=== PATIENT | female | born 1995 ===

== ENCOUNTER → 2018-08-23 19:25 | Outpatient (REF) | payer OTHER, SELFPAY ==
[2018-08-23 19:51] LABS: Add Manual Diff / Slide Review NO; Basophils Percent Auto 0.4 % (0-2); Eosinophils Percent Auto 1.5 % (2-4); Hematocrit 42.1 % (36-46); Hemoglobin 14.2 g/dL (12.0-16.0); Lymphocytes Percent Auto 35.9 % (25-40); Mean Corpuscular HGB Conc 33.8 % (30-36); Mean Corpuscular Hemoglobin 30.7 PG (26-34); Mean Corpuscular Volume 90.8 fL (80-100); Neutrophils Absolute Auto 3700 /uL (3000-5900); Neutrophils Percent Auto 57.2 % (50-75); Platelet Count 201 X10^3/uL (150-400); Red Blood Cell Count 4.63 X10^6/uL (4.0-5.2); Red Cell Distribution Width 14.2 % (11.6-14.8); White Blood Cell Count 6.4 X10^3/uL (4.5-11.0)
[2018-08-23 20:01] LABS: Alanine Aminotransferase 22 IU/L (9-52); Albumin 4.5 g/dL (3.5-5.0); Albumin Globulin Ratio 1.6 (1.0-2.8); Alkaline Phosphatase 73 U/L (38-126); Aspartate Aminotransferase 26 IU/L (14-36); BUN Creatinine Ratio 18.6 (6-22); Bilirubin Total 0.4 mg/dL (0.2-1.3); Blood Urea Nitrogen 13 mg/dL (7-17); Calcium 9.5 mg/dL (8.4-10.2); Carbon Dioxide 26 mmol/L (22-32); Chloride 103 mmol/L (98-107); Cholesterol 195 mg/dL (140-199); Estimated Glomerular Filt Rate > 60.0 mL/min (>60); Globulin 2.8 g/dL (1.7-4.1); Glucose 102 mg/dL (70-100); HDL Cholesterol 52 mg/dL (40-60); HEMOLYSIS < 15 (0-50); LDL Cholesterol Calculated 83 mg/dL (<100); Sodium 140 mmol/L (137-145); Total Protein 7.3 g/dL (6.3-8.2); Triglycerides 302 mg/dL (35-150)
[2018-08-23 20:03] LABS: HEMOLYSIS < 15 (0-50); Iron 163 ug/dL (37-170)
[2018-08-23 20:07] LABS: Hemoglobin A1C% w Est Avg Glu 4.9 % (4.0-6.0)
[2018-08-23 20:13] LABS: Percent Iron Saturation 45 % (15-50); Total Iron Binding Capacity 359 ug/dL (265-497); Transferrin 325 mg/dL (206-381)
[2018-08-23 20:19] LABS: Free T3, Triiodothyronine Free 3.68 pg/mL (2.77-5.27)
[2018-08-23 20:33] LABS: Thyroid Stimulating Hormone 1.82 uIU/mL (0.47-4.68)
[2018-08-23 20:37] LABS: Ferritin 11.2 ng/mL (6.27-137)
[2018-08-23 21:07] LABS: Vitamin B12 454 pg/mL (239-931)
== END ==
LOC: LAB 19:25
PROVIDERS: Visit Provider Nurse Practitioner Acute Care
DX: N39.0 Urinary tract infection, site not specified (principal); E66.3 Overweight; R63.5 Abnormal weight gain; R63.2 Polyphagia
CPT/HCPCS: 80053; 80061; 82306; 82607; 82728; 82746; 83036; 83540; 83550; 84439; 84443; 84481; 85025; 87086